=== PATIENT | female | born 1970 | race Caucasian/White ===

== ENCOUNTER 2018-01-19 18:21 | Observation (INO) | payer BC ==
[2018-01-19 18:21] VITALS: BMI 27.8
[2018-01-19] MEDS ORDERED: Sodium Chloride 0.9% 1,000 ML IV STA (19:04)
--- NOTE | 2018-01-19 19:23 | ED PDOC ---
Arrival/HPI - General Historian: Patient - History of Present Illness Time/Duration: Other (4 Days) Symptom Onset: Sudden Symptom Course: Unchanged Activities at Onset: Rest, Light Context: Home <Prabha Gonzales - Last Filed: 01/19/18 20:43> <AnjaliHernan - Last Filed: 01/20/18 00:16> - General Chief Complaint: GI Problem Time Seen by Provider: 01/19/18 19:04 - History of Present Illness Narrative History of Present Illness (Text): 01/19/18 19:17 A 47 year old female, whose past medical history includes hypertension and hyperlipidemia, presents to the emergency department with a complaint of black stools. The patient notes that for the past 4 days she has been experiencing abdominal pain, vomiting, diarrhea, fatigue and weakness. She notes that she took Pepto Bismol 4 days ago when her symptoms began. The patient also notes that for the past 4 days she has been having difficulty walking long distances without stopping because she feels very weak. The patient states that this morning she began to experience black stools and continued to have black stools throughout the day. The patient denies fevers, chills, headache, dizziness, chest pain, shortness of breath, dyspnea on exertion, cough, back pain, neck pain, urinary/bowel changes, or any other complaint. PMD: Dr. Gavin Daniels (Prabha Gonzales) Past Medical History - Provider Review Nursing Documentation Reviewed: Yes - Infectious Disease Hx of Infectious Diseases: None - Tetanus Immunization Tetanus Immunization: Unknown - Cardiac Hx Hypertension: Yes - Pulmonary Hx Respiratory Disorders: No - Endocrine/Metabolic Hx Hyperthyroidism: No - Musculoskeletal/Rheumatological Hx Back Pain: Yes Other/Comment: Back injections : Last administration 03/20/2016 - Gastrointestinal Hx Gastrointestinal Disorders: No - Genitourinary/Gynecological Hx Genitourinary Disorders: No - Psychiatric Hx Psychophysiologic Disorder: No Hx Substance Use: No - Past Surgical History Past Surgical History: No Previous - Anesthesia Hx Anesthesia: No Hx Anesthesia Reactions: No Hx Malignant Hyperthermia: No - Suicidal Assessment Feels Threatened In Home Enviroment: No <Prabha Gonzales - Last Filed: 01/19/18 20:43> Family/Social History - Physician Review Nursing Documentation Reviewed: Yes Family/Social History: No Known Family HX Smoking Status: Never Smoked Hx Alcohol Use: No Hx Substance Use: No Hx Substance Use Treatment: No <Prabha Gonzales - Last Filed: 01/19/18 20:43> Allergies/Home Meds <Prabha Gonzales - Last Filed: 01/19/18 20:43> <Hernan Washburn - Last Filed: 01/20/18 00:16> Allergies/Adverse Reactions: Allergies aspirin Adverse Reaction (Verified 01/19/18 18:51) RASH Home Medications: Home Meds Medication Instructions Recorded Confirmed Metoprolol Succinate 25 mg PO DAILY 09/15/14 01/19/18 Simvastatin 20 mg PO DAILY 09/15/14 01/19/18 Review of Systems - Physician Review All systems were reviewed & negative as marked: Yes - Review of Systems Constitutional: Fatigue (And weakness). absent: Fevers, Night Sweats Respiratory: absent: SOB, Cough Cardiovascular: absent: Chest Pain, RAMACHANDRAN Gastrointestinal: Abdominal Pain, Stool Changes (Black Stools), Diarrhea, Vomiting Genitourinary Female: absent: Urine Output Changes Musculoskeletal: absent: Back Pain, Neck Pain Neurological: absent: Headache, Dizziness <Prabha Gonzales - Last Filed: 01/19/18 20:43> Physical Exam Vital Signs Reviewed: Yes Temperature: Afebrile Blood Pressure: Hypertensive Pulse: Regular Respiratory Rate: Normal Appearance: Positive for: Well-Appearing, Non-Toxic, Comfortable Pain Distress: None Mental Status: Positive for: Alert and Oriented X 3 - Systems Exam Head: Present: Atraumatic, Normocephalic Mouth: Present: Moist Mucous Membranes Neck: Present: Normal Range of Motion Respiratory/Chest: Present: Clear to Auscultation, Good Air Exchange. No: Respiratory Distress, Accessory Muscle Use, Wheezes, Rhonchi, Tachypneic Cardiovascular: Present: Regular Rate and Rhythm, Normal S1, S2. No: Murmurs Abdomen: Present: Tenderness (Epigastric tenderness), Normal Bowel Sounds, Other. No: Distention, Peritoneal Signs, Rebound, Guarding Rectal: Present: Occult Blood (heme positive black stools), Normal Rectal Tone Back: Present: Normal Inspection. No: Midline Tenderness, Paraspinal Tenderness Upper Extremity: Present: Normal Inspection. No: Cyanosis, Edema Lower Extremity: Present: Normal Inspection. No: Edema Neurological: Present: GCS=15, Speech Normal Skin: Present: Warm, Dry, Normal Color. No: Rashes Psychiatric: Present: Alert, Oriented x 3 <Prabha Gonzales - Last Filed: 01/19/18 20:43> Vital Signs Temp Pulse Resp BP Pulse Ox 01/20/18 00:02 98 F 62 18 135/74 97 01/19/18 18:48 98.5 F 73 18 165/97 H 98 Medical Decision Making - Lab Interpretations I have reviewed the lab results: Yes - EKG Interpretation Interpreted by ED Physician: Yes Type: 12 lead EKG <Prabha Gonzales - Last Filed: 01/19/18 20:43> <Hernan Washburn - Last Filed: 01/20/18 00:16> ED Course and Treatment: 01/19/18 19:36 A 47 year old female presents to the emergency department with 4 day duration vomiting, diarrhea, abdominal pain, fatigue, weakness, and black stools today Plan: -- Abdomen/Pelvis CT -- EKG -- Chest X-ray -- Labs -- Urinalysis -- IV Fluids -- type and screen -- Reassess and disposition Progress Notes: cbc: wnl cmp: wnl pt/inr: ptt UA; cxr; ct abd/pelvis; ekg; normal sinus rhythm at [address] elevations QTC 430 Pt given 1L NS Iv bolus. 01/19/18 20:43 case signed out to dr. washburn pending labs and CT results. 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 No other acute abnormality. Addendum created by Jovana Howell MD on 01/19/2018 11:54 PM Eastern Time ([place] & [place]) Prior images from 12/03/2014 are now available and were reviewed. Cystic lesion described in the pelvis is present on the prior exam measuring 1.9 cm and appears to be associated with clots arising from the sigmoid colon rather than the bladder. 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 01/20/18 00:12 Case discussed with Delivery Man and Dr. Bolaños who is aware and agrees with the plan. Accepts patient into hospitalist service. (Hernan Washburn) - Lab Interpretations Lab Results: 01/19/18 19:45 01/19/18 19:45 Lab Results 01/19/18 21:06: PT 11.6, INR 1.00, APTT 25.6 01/19/18 21:00: Urine Color Yellow, Urine Appearance Clear, Urine pH 7.0, Ur Specific [place] 1.025, Urine Protein Negative, Urine Glucose (UA) Negative, Urine Ketones Negative, Urine Blood Negative, Urine Nitrate Negative, Urine Bilirubin Negative, Urine Urobilinogen 1.0 H, Ur Leukocyte Esterase Negative 01/19/18 20:33: Blood Type A POSITIVE, Antibody Screen Negative, BBK History Checked No verified bt 01/19/18 19:45: pO2 192 H, VBG pH 7.42, VBG pCO2 43.0, VBG HCO3 27.9, VBG Total CO2 29.2 H, VBG O2 Sat (Calc) 99.6 H, VBG Base Excess 2.9 H, VBG Potassium 3.4 L , Sodium 140.0, Chloride 108.0 H, Glucose 96, Lactate 0.8, FiO2 21.0, Venous Blood Potassium 3.4 L 01/19/18 19:45: WBC 7.0 D, RBC 4.35, Hgb 13.1, Hct 37.5, MCV 86.2, MCH 30.1, MCHC 34.9, RDW 12.9, Plt Count 245, MPV 10.0, Gran % 62.5, Lymph % (Auto) 32.2, [place] % (Auto) 4.6, Eos % (Auto) 0.7 L, Baso % (Auto) 0.0, Gran # 4.34, Lymph # ( Auto) 2.2, [place] # (Auto) 0.3, Eos # (Auto) 0.1, Baso # (Auto) 0.00 01/19/18 19:45: Sodium 142, Chloride 105, Potassium 3.6, Carbon Dioxide 27, Anion Gap 14, BUN 8, Creatinine 0.5 L, Est GFR ( Amer) > 60, Est GFR (Non -Af Amer) > 60, Random Glucose 94, Calcium 9.3, Total Bilirubin 0.5, AST 29, ALT 28, Alkaline Phosphatase 55, Lactate Dehydrogenase 538, Total Creatine Kinase 65, Troponin I < 0.01, Total Protein 7.4, Albumin 4.2, Globulin 3.2, Albumin/Globulin Ratio 1.3, Lipase 60 - RAD Interpretation Radiology Orders: 01/19/18 19:04 ABD & PELVIS IV CONTRAST ONLY [CT] Stat CHEST PORTABLE [RAD] Stat - Medication Orders Current Medication Orders: Discontinued Medications Sodium Chloride (Sodium Chloride 0.9%) 1,000 mls @ 999 mls/hr IV .Q1H1M STA Stop: 01/19/18 20:04 Last Admin: 01/19/18 20:01 Dose: 999 mls/hr eMAR Start Stop Document 01/19/18 20:01 HI (Rec: 01/19/18 20:01 [email or web address] Intravenous Solution Start Date 01/19/18 Start Time 20:01 Pantoprazole Sodium (Protonix Inj) 40 mg IVP STAT STA Stop: 01/19/18 20:58 Last Admin: 01/19/18 22:16 Dose: 40 mg IVP Administration Document 01/19/18 22:16 HI (Rec: 01/19/18 22:16 [email or web address] Charges for Administration # of IVP Administrations 1 - Scribe Statement The provider has reviewed the documentation as recorded by the Scribe <Prabha Gonzales - Last Filed: 01/19/18 20:43> - PA / [employer] / Resident Statement / has reviewed & agrees with the documentation as recorded. MD/DO has examined the patient and agrees with the treatment plan. <Hernan Washburn - Last Filed: 01/20/18 00:16> - Scribe Statement Yazmin Torres Provider Scribe Attestation: All medical record entries made by the Scribe were at my direction and personally dictated by me. I have reviewed the chart and agree that the record accurately reflects my personal performance of the history, physical exam, medical decision making, and the department course for this patient. I have also personally directed, reviewed, and agree with the discharge instructions and disposition. (Prabha Gonzales) Disposition/Present on Arrival - Present on Arrival Any Indicators Present on Arrival: No History of DVT/PE: No History of Uncontrolled Diabetes: No Urinary Catheter: No History of Decub. Ulcer: No History Surgical Site Infection Following: None <Prabha Gonzales - Last Filed: 01/19/18 20:43> - Present on Arrival Any Indicators Present on Arrival: No History of DVT/PE: No History of Uncontrolled Diabetes: No Urinary Catheter: No History of Decub. Ulcer: No History Surgical Site Infection Following: None - Disposition Have Diagnosis and Disposition been Completed?: Yes Disposition Time: 00:16 Patient Plan: Observation <Hernan Washburn - Last Filed: 01/20/18 00:16> - Disposition Diagnosis: GI bleed Disposition: HOSPITALIZED Condition: STABLE Referrals: Germaine Daniels MD [Primary Care Provider] - Follow up with primary Forms: [employer] ([place])
[2018-01-19 20:00] LABS: EOS # 0.1 (0.0-0.7); EOS % 0.7 % (1.5-5.0); GRAN # 4.34 (1.4-6.5); GRAN % 62.5 % (50.0-68.0); HEMOGLOBIN 13.1 g/dL (12.0-16.0); LYMPH # 2.2 (1.2-3.4); LYMPH % 32.2 % (22.0-35.0); MEAN CELL VOLUME 86.2 fl (80.0-105.0); MEAN CORPUSCULAR HEMOGLOBIN 30.1 pg (25.0-35.0); MEAN CORPUSCULAR HGB CONC 34.9 g/dl (31.0-37.0); MONO # 0.3 (0.1-0.6); MONO % 4.6 % (1.0-6.0); RBC 4.35 10^6/uL (3.5-6.1); RED CELL DISTRIBUTION WIDTH 12.9 % (11.5-14.5)
[2018-01-19 20:07] LABS: VENOUS BLOOD GAS BASE EXCESS 2.9 mmol/L (0.0-2.0); VENOUS BLOOD GAS PO2 192 mm/Hg (30-55); VENOUS BLOOD PH 7.42 (7.32-7.43)
[2018-01-19 20:11] LABS: ALB/GLOB RATIO 1.3 (1.1-1.8); ALBUMIN 4.2 g/dL (3.0-4.8); CALCIUM 9.3 mg/dL (8.4-10.5); GFR AFRICAN-AMERICAN > 60; GFR NON-AFRICAN AMERICAN > 60; LIPASE 60 U/L (23-300)
[2018-01-19 20:22] LABS: TROPONIN I < 0.01 ng/mL
[2018-01-19 20:29] LABS: ALT/SGPT 28 U/L (7-56); AST/SGOT 29 U/L (14-36); BLOOD UREA NITROGEN 8 mg/dL (7-21)
[2018-01-19 21:11] LABS: URINE BILIRUBIN NEGATIVE (NEGATIVE); URINE BLOOD NEGATIVE (NEGATIVE); URINE GLUCOSE (UA) NEGATIVE (NEGATIVE); URINE LEUKOCYTE ESTERASE NEGATIVE Leu/uL (NEGATIVE); URINE PROTEIN NEGATIVE mg/dL (<30 mg/dL)
[2018-01-19 21:12] LABS: URINE APPEARANCE CLEAR (CLEAR); URINE COLOR YELLOW (YELLOW)
[2018-01-19] MEDS ORDERED: Iohexol 350 MG/100 ML VIAL ONE (21:24)
[2018-01-19 21:30] LABS: PARTIAL THROMBOPLASTIN TIME 25.6 Seconds (25.1-36.5); PROTHROMBIN TIME 11.6 SECONDS (9.4-12.5)
[2018-01-20] MEDS: Sodium Chloride 0.9% 1,000 ML IV SCH ×2 (01:24→10:41)
--- NOTE | 2018-01-20 01:27 | CP.PCM.HP ---
<Kayden Meyers - Last Filed: 01/20/18 01:23> History of Present Illness - History of Present Illness History of Present Illness: Kayden Meyers PGY2 IM H&P Note for Dr. Bolaños Ms. Joyner is a 47-year-old female with a PMH of hypertension and hyperlipidemia who presents for abdominal pain, nausea/vomiting/diarrhea for the past 3 days. Patient states 3 days ago, she began having nausea and vomiting which was nonbloody and non-bilious in nature. She later went to eat with her family at a restaurant that she frequently visits, and afterwards began experiencing diarrhea which was nonbloody over the next 2 days, patient experienced abdominal pain, nausea/vomiting throughout the day. She does state that she took Pepto-Bismol which helped with the nausea and vomiting but not the diarrhea. On the morning of her presentation, the patient had an episode of dark stools with no streaking of blood and has not had any bowel movements or nausea/vomiting since that. The patient denies prior episodes, or similar presentations in family members who ate at the same restaurant. She denies fever/chills, chest pain, headaches, fatigue, dizziness, leg swelling, shortness of breath. Of note, the patient states that she has received injections in the back before due to being told that she has a cyst in the back that was causing pain to radiate down her legs. 12 point ROS was reviewed and is otherwise unremarkable. 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 Per ED MD, the patient is stool occult positive. When seen by medical team, the patient states that her symptoms have resolved after medical treatment (protonix), and she is no longer experiencing abdominal pain and has not had any episodes of nausea/vomiting/diarrhea since the morning of admission. PMH: As above PSH: None Meds: Metoprolol 25 HS, simvastatin Pharmacy: [facility] PMD: Germaine Daniels Allergies: NKDA SHx: Denies tobacco use, alcohol use, or drug use. Worked with an [employer], now home with kids. 3 kids, all born vaginally with no complications. regular menstrual cycles, with heavy blood flow, LMP was last week FHx: Lung cancer in a smoker, no other cancers Present on Admission - Present on Admission Any Indicators Present on Admission: No Review of Systems - Review of Systems All systems: reviewed and no additional remarkable complaints except (as per HPI ) Past Patient History - Infectious Disease Hx of Infectious Diseases: None - Tetanus Immunizations Tetanus Immunization: Unknown - Past Medical History & Family History Past Medical History?: Yes Past Family History: Reviewed and not pertinent - Past Social History Smoking Status: Never Smoked Alcohol: None Drugs: Denies Home Situation {Lives}: With Family - CARDIAC Hx Hypercholesterolemia: Yes Hx Hypertension: Yes - PULMONARY Hx Respiratory Disorders: No - NEUROLOGICAL Hx Neurological Disorder: No - HEENT Hx HEENT Problems: No - RENAL Hx Chronic Kidney Disease: No - ENDOCRINE/METABOLIC Hx Endocrine Disorders: No Hx Hyperthyroidism: No - HEMATOLOGICAL/ONCOLOGICAL Hx Blood Disorders: No - INTEGUMENTARY Hx Dermatological Problems: No - MUSCULOSKELETAL/RHEUMATOLOGICAL Hx Back Pain: Yes Other/Comment: Back injections : Last administration 03/20/2016 - GASTROINTESTINAL Hx Gastrointestinal Disorders: No - GENITOURINARY/GYNECOLOGICAL Hx Genitourinary Disorders: No - PSYCHIATRIC Hx Psychophysiologic Disorder: No Hx Substance Use: No - SURGICAL HISTORY Hx Surgeries: No - ANESTHESIA Hx Anesthesia: No Hx Anesthesia Reactions: No Hx Malignant Hyperthermia: No Meds Allergies/Adverse Reactions: Allergies Allergy/AdvReac Type Severity Reaction Status Date / Time aspirin AdvReac RASH Verified 01/19/18 18:51 Physical Exam - Constitutional Appears: Well, Non-toxic, No Acute Distress - Head Exam Head Exam: NORMAL INSPECTION - Eye Exam Eye Exam: EOMI, Normal appearance. absent: Scleral icterus - ENT Exam ENT Exam: Mucous Membranes Moist - Neck Exam Neck exam: Positive for: Normal Inspection - Respiratory Exam Respiratory Exam: NORMAL BREATHING PATTERN. absent: Rales, Rhonchi, Wheezes, Respiratory Distress - Cardiovascular Exam Cardiovascular Exam: RRR, +S1, +S2 - GI/Abdominal Exam GI & Abdominal Exam: Normal Bowel Sounds, Soft. absent: Distended, Guarding, Hernia, Organomegaly, Tenderness - Extremities Exam Extremities exam: Positive for: normal inspection, pedal pulses present. Negative for: pedal edema - Back Exam Back exam: NORMAL INSPECTION. absent: CVA tenderness (L), CVA tenderness (R), tenderness - Neurological Exam Neurological exam: Alert, Oriented x3 - Psychiatric Exam Psychiatric exam: Normal Mood - Skin Skin Exam: Normal Color, Warm Results - Vital Signs Recent Vital Signs: Last Vital Signs Temp 98 F 01/20/18 00:02 Pulse 62 01/20/18 00:02 Resp 18 01/20/18 00:02 BP 135/74 01/20/18 00:02 Pulse Ox 97 01/20/18 00:02 - Labs Result Diagrams: 01/19/18 19:45 01/19/18 19:45 Assessment & Plan - Assessment and Plan (Free Text) Assessment: 47-year-old female with a PMH of hypertension and hyperlipidemia who presents for abdominal pain, nausea/vomiting/diarrhea and an episode of dark stools for the past 3 days. Imaging shows cyst near sigmoid colon wall which could be the cause of her hemoccult positive result. Other etiologies could include gastroenteritis or diverticulosis. Plan: 1. Dark stools, GI bleed likely secondary to diverticulosis versus gastroenteritis - Maintain NPO status except meds - NS @ 125 - Protonix IVP daily - GI consulted, recs appreciated - Trend H/H, currently stable with no active bleeding noted - Zofran as needed nausea/vomiting 2. Hx HTN - Continue home med - Check A1c, lipid panel, TSH 3. Hx HLD - Continue home med - Check lipid panel Case was reviewed and discussed with attending, Dr. Bolaños <Mami CARLSON,[facility] - Last Filed: 01/20/18 07:13> Results - Vital Signs Recent Vital Signs: Last Vital Signs Temp 98 F 01/20/18 02:40 Pulse 53 L 01/20/18 02:40 Resp 18 01/20/18 02:40 BP 145/85 01/20/18 02:40 Pulse Ox 99 01/20/18 02:26 - Labs Result Diagrams: 01/19/18 19:45 01/19/18 19:45 Labs: Laboratory Results - last 24 hr 01/20/18 01:43 TSH 3rd Generation 1.63 Attending/Attestation - Attestation I have personally seen and examined this patient.: Yes I have fully participated in the care of the patient.: Yes I have reviewed all pertinent clinical information: Yes Notes (Text): -I agree with the above H&P completed by the resident physician with the following additions and/or changes: -The patient is a 47 year old woman with a history of HTN and HL, who is being admitted with melena and acute gastroenteritis. Likely possible etiology for her melena is PUD. Hemodynamically stable with a normal hemoglobin. Also, incidentally, her CT-A/P showed a, benign-appearing 4 cm cystic lesion in the pelvis abutting the sigmoid colon and the bladder. GI has been consulted and she will be kept NPO in the meantime.
[2018-01-20 07:38] LABS: HEMOGLOBIN 12.1 g/dL (12.0-16.0); MEAN CELL VOLUME 86.3 fl (80.0-105.0); MEAN CORPUSCULAR HEMOGLOBIN 29.2 pg (25.0-35.0); MEAN CORPUSCULAR HGB CONC 33.8 g/dl (31.0-37.0); MEAN PLATELET VOLUME 9.9 fl (7.0-11.0); RBC 4.15 10^6/uL (3.5-6.1); RED CELL DISTRIBUTION WIDTH 12.9 % (11.5-14.5); WHITE BLOOD COUNT 6.6 10^3/ul (4.5-11.0)
[2018-01-20 08:01] LABS: ALB/GLOB RATIO 1.2 (1.1-1.8); ALBUMIN 3.6 g/dL (3.0-4.8); ALT/SGPT 24 U/L (7-56); AST/SGOT 26 U/L (14-36); BLOOD UREA NITROGEN 4 mg/dL (7-21); CALCIUM 8.7 mg/dL (8.4-10.5); GFR AFRICAN-AMERICAN > 60; GFR NON-AFRICAN AMERICAN > 60; HDL CHOLESTEROL 48 mg/dL (29-60)
[2018-01-20 08:05] LABS: LDL CHOLESTEROL 116 mg/dL (0-129)
[2018-01-20] MEDS ORDERED: Potassium Chloride 40 mEq/30 ml LIQ UD PO ONE (08:56)
--- NOTE | 2018-01-20 08:59 | RAD ---
Date of service: 01/19/2018 HISTORY: rectal bleeding COMPARISON: 03/22/2016 FINDINGS: LUNGS: No active pulmonary disease. PLEURA: No significant pleural effusion identified, no pneumothorax apparent. CARDIOVASCULAR: Normal. OSSEOUS STRUCTURES: No significant abnormalities. VISUALIZED UPPER ABDOMEN: Normal. OTHER FINDINGS: None. IMPRESSION: No active disease.
[2018-01-20] MEDS ORDERED: Pantoprazole 40 mg EC Tab PO SCH (09:10)
[2018-01-20] MEDS: Metoprolol Succinate 25 mg XL Tab PO SCH ×2 (10:38→10:48)
--- NOTE | 2018-01-20 11:23 | CT ---
Date of service: 01/19/2018 PROCEDURE: CT Abdomen and Pelvis with contrast HISTORY: abd pain, rectal bleeding COMPARISON: None. TECHNIQUE: Contrast dose: 100 cc of Omni 350 Radiation dose: Total exam DLP = 562 mGy-cm. This CT exam was performed using one or more of the following dose reduction techniques: Automated exposure control, adjustment of the mA and/or kV according to patient size, and/or use of iterative reconstruction technique. FINDINGS: LOWER THORAX: Unremarkable. LIVER: Unremarkable. No gross lesion or ductal dilatation. GALLBLADDER AND BILE DUCTS: Unremarkable. PANCREAS: Unremarkable. No gross lesion or ductal dilatation. SPLEEN: Unremarkable. ADRENALS: Unremarkable. No mass. KIDNEYS AND URETERS: Unremarkable. No hydronephrosis. No solid mass. VASCULATURE: Unremarkable. No aortic aneurysm. BOWEL: Unremarkable. No obstruction. No gross mural thickening. APPENDIX: Normal appendix. PERITONEUM: There is a 3 x 3.7 cm cystic lesion in the left side of the pelvis adjacent to the sigmoid colon and bladder. This has increased in size previously measuring 1.9 cm. This has a benign appearance and may represent some type of mesenteric cyst. This is separate from the ovaries. LYMPH NODES: Unremarkable. No enlarged lymph nodes. BLADDER: Unremarkable. REPRODUCTIVE: Unremarkable. BONES: No acute fracture. OTHER FINDINGS: The report concurs with the preliminary [facility] report IMPRESSION: No acute intra-abdominal findings
--- NOTE | 2018-01-20 12:48 | US ---
Date of service: 01/20/2018 HISTORY: cyst COMPARISON: CT 01/19/2018 TECHNIQUE: Sonographic evaluation of the abdomen. FINDINGS: LIVER: Measures 13.6 x 11.5 cm. Normal echogenicity of the liver parenchyma. No mass. No intrahepatic bile duct dilatation. GALLBLADDER: Unremarkable. No gallstones. COMMON BILE DUCT: Measures 3 mm. No stones. No dilatation. PANCREAS: Unremarkable as visualized. No mass. No ductal dilatation. RIGHT KIDNEY: Measures 10.3 x 4 x 5.3cm. Normal echogenicity. No calculus, mass, or hydronephrosis. LEFT KIDNEY: Measures 10.9 x 5.9 x 5.3cm. Normal echogenicity. No calculus, mass, or hydronephrosis. SPLEEN: Normal in size and contour. No mass. 8.7 x 3.6 cm AORTA: No aneurysmal dilatation. IVC: Unremarkable. OTHER FINDINGS: The pelvic cyst demonstrated on CT was not evaluated on this abdominal ultrasound. IMPRESSION: Unremarkable abdominal sonogram.
--- NOTE | 2018-01-20 13:06 | CON ---
DATE: 01/20/2018 REQUESTING PHYSICIAN: Gloria Muller MD. REASON FOR CONSULTATION: I have been asked to see this 47-year-old female who comes to the hospital with 3 days' of epigastric pain, nausea, and vomiting. Her abdominal pain and vomiting have improved. She continues to have diarrhea of up to 3 episodes per day. She states that the bowel movements are watery and dark. She took Pepto-Bismol several days ago. The patient states that her symptoms started after eating at a restaurant 3 days ago. She denies any recent travel. CT scan of the abdomen and pelvis reveals a 4 cm cystic lesion in the pelvis between the sigmoid colon and bladder. This was apparently seen on a CAT scan from several years ago. PAST MEDICAL HISTORY: Notable for hypertension, hyperlipidemia. PAST SURGICAL HISTORY: None. SOCIAL HISTORY: She denies cigarette smoking or alcohol use. FAMILY HISTORY: Noncontributory. MEDICATIONS AT HOME: Include metoprolol and simvastatin. REVIEW OF SYSTEMS: A 14-point review of systems is notable for abdominal pain, nausea, vomiting, and diarrhea. PHYSICAL EXAMINATION: GENERAL: Well-developed female lying in bed, in no acute distress. VITAL SIGNS: Reveal temperature of 98.2, blood pressure 164/88, heart rate of 58. HEENT: Reveal sclerae to be white. Oral mucosa is moist. NECK: Supple. CHEST: Reveal lungs to be clear. HEART: Reveals regular rate and rhythm. ABDOMEN: Soft, mild epigastric tenderness. No rebound, no guarding. EXTREMITIES: Show no edema. LABORATORY DATA: Reveal white blood cell count of 6.6, hemoglobin of 12.1. On admission, her hemoglobin was 13.1. Her blood count is stable. Chemistries reveal potassium of 3.1, BUN 11, creatinine 0.5. AST, ALT, alkaline phosphatase are all normal. IMPRESSION: A 47-year-old female with 3 days' of nausea, vomiting, epigastric pain, and diarrhea. Her abdominal pain and vomiting have improved; however, the diarrhea persists. CT scan of the abdomen and pelvis is negative for any acute findings. 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 I suspect that her presenting symptoms are due to a gastroenteritis, possibly food poisoning. There is no clinical evidence of active bleeding. The patient did take Pepto-Bismol and this may explain her dark stools. RECOMMENDATIONS: 1. We will advance the patient to a low-fat, lactose-free diet. 2. Continue PPI. If her diarrhea improves, the patient can be discharged home with outpatient followup. I have asked the patient to see me in the office on followup. Gaurav Gonzalez MD
[2018-01-20 16:29] VITALS: RESP 18; O2SAT 100
--- NOTE | 2018-01-20 17:10 | CARD ---
APPROVED REPORT Date of service: 01/19/2018 EKG Measurement Heart [id number] <Conclusion> Normal sinus rhythm Nonspecific ST and T wave abnormality Abnormal ECG
[2018-01-21 06:41] LABS: BASO # 0.01 K/mm3 (0.0-2.0); BASO % 0.2 % (0.0-3.0); EOS # 0.1 (0.0-0.7); EOS % 1.9 % (1.5-5.0); GRAN # 3.21 (1.4-6.5); GRAN % 55.2 % (50.0-68.0); HEMOGLOBIN 12.7 g/dL (12.0-16.0); LYMPH # 2.2 (1.2-3.4); LYMPH % 38.2 % (22.0-35.0); MEAN CELL VOLUME 86.6 fl (80.0-105.0); MEAN CORPUSCULAR HEMOGLOBIN 29.3 pg (25.0-35.0); MEAN CORPUSCULAR HGB CONC 33.9 g/dl (31.0-37.0); MEAN PLATELET VOLUME 9.6 fl (7.0-11.0); MONO # 0.3 (0.1-0.6); MONO % 4.5 % (1.0-6.0); RBC 4.33 10^6/uL (3.5-6.1); RED CELL DISTRIBUTION WIDTH 12.8 % (11.5-14.5); WHITE BLOOD COUNT 5.8 10^3/ul (4.5-11.0)
[2018-01-21 07:23] LABS: ALB/GLOB RATIO 1.1 (1.1-1.8); ALBUMIN 3.6 g/dL (3.0-4.8); ALT/SGPT 16 U/L (7-56); AST/SGOT 19 U/L (14-36); BLOOD UREA NITROGEN 3 mg/dL (7-21); CALCIUM 8.9 mg/dL (8.4-10.5); GFR AFRICAN-AMERICAN > 60; GFR NON-AFRICAN AMERICAN > 60
[2018-01-21 08:33] VITALS: PULSE 55; TEMP 98.6
[2018-01-21] MEDS: Metoprolol Succinate 25 mg XL Tab PO SCH (10:10)
[2018-01-21 10:14] VITALS: BP 124/76
--- NOTE | 2018-01-21 12:40 | PN ---
DATE: 01/21/2018 SUBJECTIVE: The patient is lying in bed. She feels better. She has less epigastric pain. Her bowel movements are becoming less watery more formed and less dark in color almost brown. She is tolerating solid foods. MEDICATIONS: Include atorvastatin, pantoprazole, metoprolol, acetaminophen and ondansetron. PHYSICAL EXAMINATION: VITAL SIGNS: Reveal temperature of 98.6, blood pressure 123/77, heart rate of 55. HEENT: Reveal sclerae to be white. Conjunctivae pink. Oral mucosa is moist. NECK: Supple. CHEST: Reveal lungs to be clear. HEART: Reveals regular rate and rhythm. ABDOMEN: Soft. Minimal epigastric tenderness. No rebound or guarding. EXTREMITIES: Show no edema. LABORATORY DATA: Reveal normal electrolytes. Chemistries reveal BUN 3, creatinine 0.5, chloride of 108. Her hemoglobin has actually increased from yesterday from 12.1-12.7. IMPRESSION AND PLAN: Probable acute gastroenteritis. The patient did give a history of having dark watery bowel movements. I do not believe that this is melena or gastrointestinal bleed. Her hemoglobin has remained stable. 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 No further gastrointestinal workup is planned at this time. I have asked the patient to follow up with me in the office. Gaurav Gonzalez MD
--- NOTE | 2018-01-21 13:51 | CP.PCM.DIS ---
<[email or web address] - Last Filed: 01/21/18 22:34> Provider - Provider Date of Admission: 01/20/18 00:14 Attending physician: Gloria Muller MD Primary care physician: Germaine Daniels MD Time Spent in preparation of Discharge (in minutes): 45 Diagnosis - Discharge Diagnosis (1) Gastroenteritis Status: Acute Priority: Medium (2) Black stool Status: Acute Priority: Medium (3) Diarrhea Status: Resolved Priority: Medium (4) Nausea & vomiting Status: Resolved Priority: Medium (5) Hypertension Status: Chronic Priority: Medium (6) Hyperkalemia Status: Resolved Priority: Medium (7) Hyperlipemia Status: Chronic Priority: Medium Hospital Course - Lab Results Lab Results: Most Recent Lab Values WBC 5.8 10^3/ul (4.5-11.0) 01/21/18 06:15 RBC 4.33 10^6/uL (3.5-6.1) 01/21/18 06:15 Hgb 12.7 g/dL (12.0-16.0) 01/21/18 06:15 Hct 37.5 % (36.0-48.0) 01/21/18 06:15 MCV 86.6 fl (80.0-105.0) 01/21/18 06:15 MCH 29.3 pg (25.0-35.0) 01/21/18 06:15 MCHC 33.9 g/dl (31.0-37.0) 01/21/18 06:15 RDW 12.8 % (11.5-14.5) 01/21/18 06:15 Plt Count 233 10^3/uL (120.0-450.0) 01/21/18 06:15 MPV 9.6 fl (7.0-11.0) 01/21/18 06:15 Gran % 55.2 % (50.0-68.0) 01/21/18 06:15 Lymph % (Auto) 38.2 % (22.0-35.0) H 01/21/18 06:15 Ellsworth % (Auto) 4.5 % (1.0-6.0) 01/21/18 06:15 Eos % (Auto) 1.9 % (1.5-5.0) 01/21/18 06:15 Baso % (Auto) 0.2 % (0.0-3.0) 01/21/18 06:15 Gran # 3.21 (1.4-6.5) 01/21/18 06:15 Lymph # (Auto) 2.2 (1.2-3.4) 01/21/18 06:15 Ellsworth # (Auto) 0.3 (0.1-0.6) 01/21/18 06:15 Eos # (Auto) 0.1 (0.0-0.7) 01/21/18 06:15 Baso # (Auto) 0.01 K/mm3 (0.0-2.0) 01/21/18 06:15 PT 11.6 SECONDS (9.4-12.5) 01/19/18 21:06 INR 1.00 (0.93-1.08) 01/19/18 21:06 APTT 25.6 Seconds (25.1-36.5) 01/19/18 21:06 pO2 192 mm/Hg (30-55) H 01/19/18 19:45 VBG pH 7.42 (7.32-7.43) 01/19/18 19:45 VBG pCO2 43.0 (40-60) 01/19/18 19:45 VBG HCO3 27.9 mmol/l (21-28) 01/19/18 19:45 VBG Total CO2 29.2 mmol.L (22-28) H 01/19/18 19:45 VBG O2 Sat (Calc) 99.6 % (40-65) H 01/19/18 19:45 VBG Base Excess 2.9 mmol/L (0.0-2.0) H 01/19/18 19:45 VBG Potassium 3.4 mmol/L (3.6-5.2) L 01/19/18 19:45 Sodium 140.0 mmol/L (132-148) 01/19/18 19:45 Chloride 108.0 mmol/L (98-107) H 01/19/18 19:45 Glucose 96 mg/dl (65-105) 01/19/18 19:45 Lactate 0.8 mmol/L (0.7-2.1) 01/19/18 19:45 FiO2 21.0 % 01/19/18 19:45 Sodium 141 mmol/L (132-148) 01/21/18 06:15 Potassium 4.0 mmol/L (3.6-5.0) 01/21/18 06:15 Chloride 108 mmol/L (98-107) H 01/21/18 06:15 Carbon Dioxide 25 mmol/L (21-33) 01/21/18 06:15 Anion Gap 12 (10-20) 01/21/18 06:15 BUN 3 mg/dL (7-21) L 01/21/18 06:15 Creatinine 0.5 mg/dl (0.7-1.2) L 01/21/18 06:15 Est GFR ( Amer) > 60 01/21/18 06:15 Est GFR (Non-Af Amer) > 60 01/21/18 06:15 Random Glucose 95 mg/dL (70-110) 01/21/18 06:15 Hemoglobin A1c 5.5 % (4.2-6.5) 01/20/18 07:00 Calcium 8.9 mg/dL (8.4-10.5) 01/21/18 06:15 Phosphorus 2.9 mg/dL (2.5-4.5) 01/20/18 07:00 Magnesium 2.0 mg/dL (1.7-2.2) 01/20/18 07:00 Total Bilirubin 0.6 mg/dL (0.2-1.3) 01/21/18 06:15 AST 19 U/L (14-36) 01/21/18 06:15 ALT 16 U/L (7-56) 01/21/18 06:15 Alkaline Phosphatase 51 U/L (38-126) 01/21/18 06:15 Lactate Dehydrogenase 538 U/L (333-699) 01/19/18 19:45 Total Creatine Kinase 65 U/L (35-230) 01/19/18 19:45 Troponin I < 0.01 ng/mL 01/19/18 19:45 Total Protein 6.7 g/dL (5.8-8.3) 01/21/18 06:15 Albumin 3.6 g/dL (3.0-4.8) 01/21/18 06:15 Globulin 3.1 gm/dL 01/21/18 06:15 Albumin/Globulin Ratio 1.1 (1.1-1.8) 01/21/18 06:15 Triglycerides 76 mg/dL (35-160) 01/20/18 07:00 Cholesterol 196 mg/dL (130-200) 01/20/18 07:00 LDL Cholesterol Direct 116 mg/dL (0-129) 01/20/18 07:00 HDL Cholesterol 48 mg/dL (29-60) 01/20/18 07:00 Lipase 60 U/L (23-300) 01/19/18 19:45 TSH 3rd Generation 1.63 mIU/mL (0.46-4.68) 01/20/18 01:43 Venous Blood Potassium 3.4 mmol/L (3.6-5.2) L 01/19/18 19:45 Urine Color Yellow (YELLOW) 01/19/18 21:00 Urine Appearance Clear (CLEAR) 01/19/18 21:00 Urine pH 7.0 (4.7-8.0) 01/19/18 21:00 Ur Specific Kinsman 1.025 (1.005-1.035) 01/19/18 21:00 Urine Protein Negative mg/dL (<30 mg/dL) 01/19/18 21:00 Urine Glucose (UA) Negative mg/dL (NEGATIVE) 01/19/18 21:00 Urine Ketones Negative mg/dL (NEGATIVE) 01/19/18 21:00 Urine Blood Negative (NEGATIVE) 01/19/18 21:00 Urine Nitrate Negative (NEGATIVE) 01/19/18 21:00 Urine Bilirubin Negative (NEGATIVE) 01/19/18 21:00 Urine Urobilinogen 1.0 E.U./dL (<1 E.U./dL) H 01/19/18 21:00 Ur Leukocyte Esterase Negative Nereyda/uL (NEGATIVE) 01/19/18 21:00 Blood Type A POSITIVE 01/19/18 20:33 Blood Type Confirm A POSITIVE 01/21/18 06:15 Antibody Screen Negative 01/19/18 20:33 BBK History Checked No verified bt 01/19/18 20:33 - Hospital Course Hospital Course: Ms. Joyner is a 47-year-old female with a PMH of hypertension and hyperlipidemia who presents for abdominal pain, nausea/vomiting/diarrhea for the past 3 days. Patient was admitted for gastroenteritis and was treated with IV fluids, zofran, potassium chloride, and protonix. Home medications lipitor and metoprolol were continued. During the course of his hospital stay, the patient underwent EKG, abdomen/pelvis CT, abdomen ultrasound, and chest xray. EKG showed normal sinus rhythm at 61 bmp, abdomen/pelvis CT showed a benign cyst in the left side of the pelvis adjacent to the sigmoid colon and bladder, abdomen ultrasound was unremarkable, and chest xray showed no active disease. Gastroenterology (Dr. Gonzalez) was consulted and suggested the patient to continue protonix and for the patient to follow up as an outpatient. Upon discharge, patient was instructed to follow up with her PMD Dr. Daniels in 5-7 days and make an appointment with cad manager Dr. Gonzalez within 1 week. She was also instructed to follow up with her ob-foam cutting supervisor for her pelvic cyst. Patient was instructed to continue home medications metoprolol and simvastatin. She was instructed to resume activities as tolerated, stay hydrated, and advance her diet slowly to solid foods. Patient further informed to return to the ED for worsening of symptoms.Patient is now medically optimized for discharge. Discharge Exam - Head Exam Head Exam: NORMAL INSPECTION - Eye Exam Eye Exam: Normal appearance - ENT Exam ENT Exam: Mucous Membranes Moist - Respiratory Exam Respiratory Exam: Clear to PA & Lateral. absent: Rales, Rhonchi, Wheezes - Cardiovascular Exam Cardiovascular Exam: REGULAR RHYTHM, +S1, +S2. absent: Gallop, Rubs, Systolic Murmur - GI/Abdominal Exam GI & Abdominal Exam: Normal Bowel Sounds, Soft, Tenderness Additional comments: Mildly tender on palpation in epigastric area - Extremities Exam Additional comments: no calf tenderness or pedal edema - Neurological Exam Neurological exam: Alert, Oriented x3 - Psychiatric Exam Psychiatric exam: Normal Affect, Normal Mood - Skin Skin Exam: Dry, Normal Color, Warm Discharge Plan - Follow Up Plan Condition: STABLE Disposition: HOME/ ROUTINE Instructions: High Cholesterol, High Blood Pressure in Adults, Gastrointestinal Bleeding, Viral Gastroenteritis, Adult (DC) Additional Instructions: Please follow up with your primary care doctor in 3-5 days Follow up with Dr Gonzalez, cad manager within 1 week, call the office to schedule an appointment Drink plenty of water, eat a balanced diet Follow up with your network support technician for pelvic cyst Please return to the emergency room if the symptoms return Referrals: Germaine Daniels MD [Primary Care Provider] - Gaurav Gonzalez MD [Staff Provider] - <Natali Dixon R - Last Filed: 01/22/18 12:30> Provider - Provider Date of Admission: 01/20/18 00:14 Attending physician: Gloria Muller MD Primary care physician: Germaine Daniels MD Hospital Course - Lab Results Lab Results: Most Recent Lab Values WBC 5.8 10^3/ul (4.5-11.0) 01/21/18 06:15 RBC 4.33 10^6/uL (3.5-6.1) 01/21/18 06:15 Hgb 12.7 g/dL (12.0-16.0) 01/21/18 06:15 Hct 37.5 % (36.0-48.0) 01/21/18 06:15 MCV 86.6 fl (80.0-105.0) 01/21/18 06:15 MCH 29.3 pg (25.0-35.0) 01/21/18 06:15 MCHC 33.9 g/dl (31.0-37.0) 01/21/18 06:15 RDW 12.8 % (11.5-14.5) 01/21/18 06:15 Plt Count 233 10^3/uL (120.0-450.0) 01/21/18 06:15 MPV 9.6 fl (7.0-11.0) 01/21/18 06:15 Gran % 55.2 % (50.0-68.0) 01/21/18 06:15 Lymph % (Auto) 38.2 % (22.0-35.0) H 01/21/18 06:15 Ellsworth % (Auto) 4.5 % (1.0-6.0) 01/21/18 06:15 Eos % (Auto) 1.9 % (1.5-5.0) 01/21/18 06:15 Baso % (Auto) 0.2 % (0.0-3.0) 01/21/18 06:15 Gran # 3.21 (1.4-6.5) 01/21/18 06:15 Lymph # (Auto) 2.2 (1.2-3.4) 01/21/18 06:15 Ellsworth # (Auto) 0.3 (0.1-0.6) 01/21/18 06:15 Eos # (Auto) 0.1 (0.0-0.7) 01/21/18 06:15 Baso # (Auto) 0.01 K/mm3 (0.0-2.0) 01/21/18 06:15 PT 11.6 SECONDS (9.4-12.5) 01/19/18 21:06 INR 1.00 (0.93-1.08) 01/19/18 21:06 APTT 25.6 Seconds (25.1-36.5) 01/19/18 21:06 pO2 192 mm/Hg (30-55) H 01/19/18 19:45 VBG pH 7.42 (7.32-7.43) 01/19/18 19:45 VBG pCO2 43.0 (40-60) 01/19/18 19:45 VBG HCO3 27.9 mmol/l (21-28) 01/19/18 19:45 VBG Total CO2 29.2 mmol.L (22-28) H 01/19/18 19:45 VBG O2 Sat (Calc) 99.6 % (40-65) H 01/19/18 19:45 VBG Base Excess 2.9 mmol/L (0.0-2.0) H 01/19/18 19:45 VBG Potassium 3.4 mmol/L (3.6-5.2) L 01/19/18 19:45 Sodium 140.0 mmol/L (132-148) 01/19/18 19:45 Chloride 108.0 mmol/L (98-107) H 01/19/18 19:45 Glucose 96 mg/dl (65-105) 01/19/18 19:45 Lactate 0.8 mmol/L (0.7-2.1) 01/19/18 19:45 FiO2 21.0 % 01/19/18 19:45 Sodium 141 mmol/L (132-148) 01/21/18 06:15 Potassium 4.0 mmol/L (3.6-5.0) 01/21/18 06:15 Chloride 108 mmol/L (98-107) H 01/21/18 06:15 Carbon Dioxide 25 mmol/L (21-33) 01/21/18 06:15 Anion Gap 12 (10-20) 01/21/18 06:15 BUN 3 mg/dL (7-21) L 01/21/18 06:15 Creatinine 0.5 mg/dl (0.7-1.2) L 01/21/18 06:15 Est GFR ( Amer) > 60 01/21/18 06:15 Est GFR (Non-Af Amer) > 60 01/21/18 06:15 Random Glucose 95 mg/dL (70-110) 01/21/18 06:15 Hemoglobin A1c 5.5 % (4.2-6.5) 01/20/18 07:00 Calcium 8.9 mg/dL (8.4-10.5) 01/21/18 06:15 Phosphorus 2.9 mg/dL (2.5-4.5) 01/20/18 07:00 Magnesium 2.0 mg/dL (1.7-2.2) 01/20/18 07:00 Total Bilirubin 0.6 mg/dL (0.2-1.3) 01/21/18 06:15 AST 19 U/L (14-36) 01/21/18 06:15 ALT 16 U/L (7-56) 01/21/18 06:15 Alkaline Phosphatase 51 U/L (38-126) 01/21/18 06:15 Lactate Dehydrogenase 538 U/L (333-699) 01/19/18 19:45 Total Creatine Kinase 65 U/L (35-230) 01/19/18 19:45 Troponin I < 0.01 ng/mL 01/19/18 19:45 Total Protein 6.7 g/dL (5.8-8.3) 01/21/18 06:15 Albumin 3.6 g/dL (3.0-4.8) 01/21/18 06:15 Globulin 3.1 gm/dL 01/21/18 06:15 Albumin/Globulin Ratio 1.1 (1.1-1.8) 01/21/18 06:15 Triglycerides 76 mg/dL (35-160) 01/20/18 07:00 Cholesterol 196 mg/dL (130-200) 01/20/18 07:00 LDL Cholesterol Direct 116 mg/dL (0-129) 01/20/18 07:00 HDL Cholesterol 48 mg/dL (29-60) 01/20/18 07:00 Lipase 60 U/L (23-300) 01/19/18 19:45 TSH 3rd Generation 1.63 mIU/mL (0.46-4.68) 01/20/18 01:43 Venous Blood Potassium 3.4 mmol/L (3.6-5.2) L 01/19/18 19:45 Urine Color Yellow (YELLOW) 01/19/18 21:00 Urine Appearance Clear (CLEAR) 01/19/18 21:00 Urine pH 7.0 (4.7-8.0) 01/19/18 21:00 Ur Specific Kinsman 1.025 (1.005-1.035) 01/19/18 21:00 Urine Protein Negative mg/dL (<30 mg/dL) 01/19/18 21:00 Urine Glucose (UA) Negative mg/dL (NEGATIVE) 01/19/18 21:00 Urine Ketones Negative mg/dL (NEGATIVE) 01/19/18 21:00 Urine Blood Negative (NEGATIVE) 01/19/18 21:00 Urine Nitrate Negative (NEGATIVE) 01/19/18 21:00 Urine Bilirubin Negative (NEGATIVE) 01/19/18 21:00 Urine Urobilinogen 1.0 E.U./dL (<1 E.U./dL) H 01/19/18 21:00 Ur Leukocyte Esterase Negative Nereyda/uL (NEGATIVE) 01/19/18 21:00 Blood Type A POSITIVE 01/19/18 20:33 Blood Type Confirm A POSITIVE 01/21/18 06:15 Antibody Screen Negative 01/19/18 20:33 BBK History Checked No verified bt 01/19/18 20:33 Attending/Attestation - Attestation I have personally seen and examined this patient.: Yes I have fully participated in the care of the patient.: Yes I have reviewed all pertinent clinical information, including history, physical exam and plan: Yes Notes (Text): Patient seen and examined by me with resident at 11:10AM 01/21/18. Case including discharge plan discussed with resident. Agree with above with following additions/corrections. Patient 47-year-old femalewith past medical history significant for hypertension and hyperlipidemia temergency room with abdominal pain, nausea, vomiting, and diarrhea and an episode of dark stool. Please see dictated H&P for further details. Patient was admitted with dark stools and GI bleed. Patient was initially made nothing by mouth. She was started on IV Protonix. GI was consulted. Patient was placed on IV fluids. Patient did have CT abdomen and pelvis done which per radiologist did not show any acute intra-abdominal findings. 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 Patient also had an abdominal ultrasound which per radiologist showed unremarkable abdominal sonogram. Patient was evaluated by gastroenterology who felt symptoms were likely secondary to acute gastroenteritis. They did not feel this was a GI bleed. Hemoglobin remained stable. Symptoms improved and no further workup was recommended by GI. All symptoms improved prior to discharge. Patient was cleared for discharge by consultants. Patient was discharged home. Physical exam: Gen: Awake and alert sitting up in bed in no acute distress HEENT: Normocephalic, atraumatic, extraocular muscles intact, pupils equal reactive, oropharynx is pink and moist, no pharyngeal erythema or exudate appreciated, neck is supple. Cardiovascular: Normal rhythm, normal S1-S2. No murmurs, rubs, or gallops appreciated Pulmonary: Normal respiratory effort. No rhonchi, rales or wheezing appreciated. Gastrointestinal: Soft, nontender, nondistended, positive bowel sounds all 4 quadrants, no guarding Musculoskeletal: Normal range of motion all extremities, no calf tenderness, no CVA tenderness. Central nervous system: AAO 3. Cranial nerves 2 through 12 grossly intact. 5 out of 5 muscle strength all extremities. Sensation intact. Dermatologic: Skin warm and dry. Please see chart for full details. Follow up instructions. patient to follow-up with her primary care doctor in 3- 5 days. Patient to follow-up with cad manager Dr. Gonzalez within 1 week. Patient to follow with her network support technician for further workup for pelvic cyst. All instructions explained to patient and patient's at bedside in detail. They both understands and agrees to all instructions. Time spent in discharging the patient including chart review, medication reconciliation, discussion with the patient, patient's at bedside, medical research associate, consultants, and nursing staff was approximately 40 minutes.
== END 2018-01-21 12:06 | disposition home or self-care (01) ==
LOC: ED 18:21 → ERH 01-20 00:14 → 5RNO 01-20 02:27
PROVIDERS: ADMIT Internal Medicine; ATTEND Internal Medicine
DX: K52.9 Noninfective gastroenteritis and colitis, unspecified (principal); I10 Essential (primary) hypertension; E87.5 Hyperkalemia; E78.5 Hyperlipidemia, unspecified; E78.00 Pure hypercholesterolemia, unspecified
CPT/HCPCS: 36415; 71045; 74177; 76700; 80053; 80061; 81003; 82550; 82803; 83036; 83615; 83690; 83735; 84100; 84443; 84484; 85025; 85027; 85610; 85730; 86850; 86900; 87045; 87177; 87209; 93005; 96374; 99285; C9113; G0378; J3480; J7030; Q9967